=== PATIENT | male | born 1975 | race Caucasian/White ===

== ENCOUNTER 2023-11-12 13:42 | Emergency (ER) | payer MEDICAID, SELFPAY ==
[2023-11-12 13:43] VITALS: BP 161/89; PULSE 75; RESP 14; TEMP 36.6; O2SAT 97; BMI 21.0
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
--- NOTE | 2023-11-12 15:55 | RAD_ITS ---
STUDY: X-RAY - LEFT ANKLE REASON FOR EXAM: Male, 48 years old. pain TECHNIQUE: 3 view(s) of the ankle. COMPARISON: None. FINDINGS: Normal visualized distal tibia and fibula. Normal medial and lateral malleoli. Normal tibiotalar articulation and ankle mortise. Normal visualized talus and calcaneus. The visualized subtalar, talonavicular, calcaneocuboid and tarsal articulations are normal. There is no demonstrated fracture. The soft tissue structures are unremarkable. RAD/Ankle min 3 Views IMPRESSION: Normal x-ray examination of the ankle. Electronically Signed: Riky Sanchez MD at 16:30 EDT ,
[2023-11-12 16:20] LABS: Bedside Glucose 98 mg/dL (74-106)
[2023-11-12 16:51] VITALS: BP 148/83; PULSE 66; RESP 16; TEMP 36.4; O2SAT 90
== END 2023-11-12 16:52 | disposition home or self-care (01) ==
PROVIDERS: Emergency Provider Emergency Medicine; Visit Provider Emergency Medicine
DX: M25.572 Pain in left ankle and joints of left foot (principal); G89.29 Other chronic pain; F17.210 Nicotine dependence, cigarettes, uncomplicated
CPT/HCPCS: 73610; 82962; 99282